=== PATIENT | female | born 1960 | race Caucasian/White ===

== ENCOUNTER 2020-06-28 08:27 | Outpatient (CLI) | payer BC, SELFPAY ==
--- NOTE | ~2020-06-28 | US_ITS ---
EXAMINATION: US abdomen limited DATE: 06/28/2020 08:58 INDICATION: Chronic hepatitis C without hepatic coma. TECHNIQUE: Multiple grayscale and Doppler ultrasound images of the abdomen were obtained. COMPARISON: Abdomen ultrasound 09/20/11 FINDINGS: The visualized portions of the head, body, and tail of the pancreas are normal. The liver i s normal without focal lesion. There is normal flow in main portal vein. The gallbladder is normal in size. No gallstones or gallbladder wall thickening. There was no sonographic Naik sign. The common duct is normal and measures 4 mm. There is a 3.2 cm cyst in right kidney. IMPRESSION: 1. Normal liver. Reviewed, dictated and finalized at location A. D CARE NURSE IMPRESSION: 1. Normal liver.
== END 2020-06-28 08:28 | disposition home or self-care (01) ==
PROVIDERS: PCP Physician Assistant
DX: B18.2 Chronic viral hepatitis C (principal)
CPT/HCPCS: 76705

== ENCOUNTER 2020-09-25 10:18 | Emergency (ER) | payer BC, SELFPAY ==
--- NOTE | ~2020-09-25 | XR_ITS ---
EXAMINATION: XR chest 2V 09/25/2020 10:56 INDICATION: Dyspnea with productive cough PROCEDURE: 2 view chest COMPARISON: 01/12/2016 FINDINGS: The lungs are clear. The cardiomediastinal silhouette is within normal limits. There are no pleural effusions. There is no pneumothorax suspected. IMPRESSION: 1: NO ACUTE CARDIOPULMONARY DISEASE. Reviewed, dictated and finalized at location B.
[2020-09-25 10:27] VITALS: BP 147/90; PULSE 94; RESP 16; TEMP 37; O2SAT 98
--- NOTE | 2020-09-25 10:46 | ED.URI ---
HPI - URI/Sore Throat General Chief Complaint: Upper Respiratory Infection Stated Complaint: cough Time Seen by Provider: 09/25/20 10:45 Source: patient Mode of arrival: ambulatory Limitations: no limitations History of Present Illness HPI Narrative: Torri Jeter is a 59-year-old female with a PMH of hypothyroidism and COPD who comes to [facility] with complaints of cough, productive, feeling like she is congested, denies fever, times 4 days COPD well controlled with the last few years, she is cutting on her cigarette consumption down to less than half pack a day Related Data Home Medications Medication Instructions Recorded Confirmed levothyroxine 1 mcg PO DAILY 09/25/20 09/25/20 Allergies Allergy/AdvReac Type Severity Reaction Status Date / Time oseltamivir [From Tamiflu] Allergy Intermediate Vomiting Verified 09/25/20 10:44 prochlorperazine Allergy Intermediate Vomiting Verified 09/25/20 10:44 [From Compazine] Review of Systems Review of Systems: Narrative: CONSTITUTIONAL: Denies fever, chills, sweats. EYES: Denies visual changes, redness, discharge. ENT: Denies rhinorrhea, congestion, sore throat, otalgia. CARDIOVASCULAR: Denies chest pain, palpitations, edema. RESPIRATORY: Denies dyspnea, wheezing, has cough which is productive, feels congested GASTROINTESTINAL: Denies abdominal pain, nausea, vomiting, diarrhea. GENITOURINARY: Denies dysuria, hematuria, abnormal discharge SKIN: Denies rash or itching. NEUROLOGIC: Denies numbness, or focal weakness. PSYCHIATRIC: Denies anxiety or depression. [facility] Past Medical History Medical History COPD exacerbation Hypothyroidism Family History Family History Mother Family history of malignant neoplasm of breast in first degree relative Hypertension Social History Social History Smoking packs per day: 0.5 Smoking cigarettes per day: 10.0 Smoking status: Current every day smoker Tobacco type: cigarettes Second hand tobacco smoke exposure: Yes Alcohol intake: former Substance use: current Substance use type: marijuana Gender identity (if verbalized by the patient): Female Comments At time of signature, I agree with nursing past medical, surgical, social and family history. There is no relevant family history pertinent to the presenting complaint. Patient's blood pressure elevated at this visit will follow up with Dr. Exam Narrative: Exam Narrative: GENERAL: This is a well-nourished, well-developed patient, in mild distress. HEAD: normocephalic, atraumatic. EYES: PERRL. Sclera clear/white. Vision is grossly intact. EARS: External ears normal, auditory canals clear and without drainage, TMs normal without perforation. Hearing grossly intact. NOSE: External nose normal without nasal discharge, nares without redness, no rhinorrhea. THROAT: Mucous membranes moist, posterior pharynx NECK: Neck supple, non-tender CARDIOVASCULAR: Regular rate and rhythm without murmurs, gallops, or rubs. RESPIRATORY: Diminished to auscultation. Breath sounds equal bilaterally. rhonchi bilateral bases. GASTROINTESTINAL: Abdomen soft, non-tender, SKIN: warm, intact with no suspicious lesions or rash, good texture and turgor. NEURO: awake, alert, and oriented to person, place and time. There were no obvious focal neurologic abnormalities. Steady gait EXTREMITIES: Normal range of motion. BACK: Nontender without deformity Course Course Emergency Course: 59-year-old patient comes to [facility] with 4-day history of cough and congestion. Sent home from work because of how bad her cough was today. History of COPD Chest x-ray - no active disease Manage cough, started on Zithromax, prednisone, refill albuterol inhaler, Delsym Vital Signs Vital signs: Vital Signs Temperature 98.6 F 06/10
== END 2020-09-25 11:28 | disposition home or self-care (01) ==
PROVIDERS: Emergency Provider Nurse Practitioner; PCP Physician Assistant
DX: J06.9 Acute upper respiratory infection, unspecified (principal); F17.210 Nicotine dependence, cigarettes, uncomplicated; J44.1 Chronic obstructive pulmonary disease with (acute) exacerbation; E03.9 Hypothyroidism, unspecified
CPT/HCPCS: 71046; 99213; G0463

== ENCOUNTER 2021-04-03 03:27 | Day surgery (SDC) | payer BC, SELFPAY ==
[2021-03-25 14:50] VITALS: BMI 26.7
[2021-04-03 07:35] VITALS: BP 183/101; PULSE 111; RESP 22; TEMP 36.3; O2SAT 97; BMI 26.4
[2021-04-03] MEDS: LACTATED RINGERS 1,000 ML 150 ML IV CONT (08:01)
--- NOTE | 2021-04-03 08:16 | WPDANESEPPF ---
Anes - Initial Pre Proc Eval Procedure: Operation Date: 04/03/21 09:00 Proposed Procedures p Colonoscopy - Shahab Asencio MD Date/Time: 04/03/21 08:16 Surgeon: Shahab Asencio MD Pre Op Diagnosis: positive cologuard Patient Data Age: 60 Gender: F Height: 1.65 m Weight: 72.1 kg Last Vital Signs Temp 36.3 C L 04/03/21 07:35 Pulse 111 H 04/03/21 07:35 Resp 22 H 04/03/21 07:35 BP 183/101 H 04/03/21 07:35 Pulse Ox 97 04/03/21 07:35 Allergies Allergy/AdvReac Type Severity Reaction Status Date / Time oseltamivir [From Tamiflu] Allergy Intermediate Vomiting Verified 04/03/21 07:50 prochlorperazine Allergy Intermediate Vomiting Verified 04/03/21 07:50 [From Compazine] Home Medications Medication Instructions Recorded Confirmed Type albuterol sulfate 90 mcg/actuation 1 inh INHALATION QID PRN #8.5 g 01/19/21 04/03/21 Rx aerosol inhaler levothyroxine 75 mcg tablet 75 mcg PO DAILY #90 tablet 02/16/21 04/03/21 Rx Patient hx anesthesia problems: none Family hx anesthesia problems: none Results Review: All pre-operative results and documents have been reviewed as part of the pre-operative evaluation. [facility] [place] Past Medical History Medical History COPD exacerbation Hepatitis C infection Hypothyroidism Surgical History Surgical History (Updated 04/03/21 @ 08:18 by Sumanth Forrest MD) H/O: hysterectomy Family History Family History Mother Family history of malignant neoplasm of breast in first degree relative Hypertension Social History Social History Smoking packs per day: 0.5 Smoking cigarettes per day: 10.0 Years smoked: 40 Smoking pack-years: 20.00 Smoking status: Current every day smoker Tobacco type: cigarettes Second hand tobacco smoke exposure: Yes Alcohol intake: former Substance use: current Substance use type: marijuana Other substance usage details: Daily Living arrangements: with family Gender identity (if verbalized by the patient): Female Spiritual care concerns: No Anes - Eval Final PreProcedure Day of Procedure 04/03/21 08:16 Patient weight: overweight Heart: regular rate and rhythm Lungs: clear to auscultation Airway: Mallampati scale class II Neurological: alert and oriented Last oral intake: >/= 8 hours ASA classification: III Emergent: no Anesthetic plan: proceed Anesthesia type and monitoring: general GIVS and standard monitoring Results Review: All pre-operative results and documents have been reviewed as part of the pre-operative evaluation. Informed Consent: The patient's anesthetic plan and its attendant risks and benefits were discussed with the patient/family/POA. Questions were solicited and answers provided to the satisfaction of the patient/family/POA.
--- NOTE | 2021-04-03 08:21 | P.CONGI_ITS ---
Assessment and Plan Assessment and plan (1) Positive colorectal cancer screening using Cologuard test: Code(s): R19.5 - Other fecal abnormalities Status: Acute Assessment and Plan: Patient had a positive Cologuard test. For this reason screening colonoscopy will be performed today. GI Consult Note Consult date/time: 04/03/21 08:21 HPI: Torri Jeter is a 60 year old female Presents for screening colonoscopy. Patient reports that her current weight appetite and bowel mov ements are normal. She denies abdominal pain. She has had no bleeding. Family history noncontributory. Patient recently had Cologuard test that was found to be positive. She presents today for screening colonoscopy. Review of Systems Review of Systems: All systems reviewed & are unremarkable except as noted in HPI and below PMFSH Past Medical History Medical History (Updated 04/03/21 @ 08:22 by Shahab Asencio MD) COPD exacerbation Hepatitis C infection Hypothyroidism Surgical History Surgical History (Updated 04/03/21 @ 08:18 by Sumanth Forrest MD) H/O: hysterectomy Family History Family History Mother Family history of malignant neoplasm of breast in first degree relative Hypertension Social History Social History Smoking packs per day: 0.5 Smoking cigarettes per day: 10.0 Years smoked: 40 Smoking pack-years: 20.00 Smoking status: Current every day smoker Tobacco type: cigarettes Second hand tobacco smoke exposure: Yes Alcohol intake: former Substance use: current Substance use type: marijuana Other substance usage details: Daily Living arrangements: with family Gender identity (if verbalized by the patient): Female Spiritual care concerns: No Meds Home Medications and Allergies Home Medications Medication Instructions Recorded Confirmed Type albuterol sulfate 90 mcg/actuation 1 inh INHALATION QID PRN #8.5 g 01/19/21 04/03/21 Rx aerosol inhaler levothyroxine 75 mcg tablet 75 mcg PO DAILY #90 tablet 02/16/21 04/03/21 Rx Allergies Allergy/AdvReac Type Severity Reaction Status Date / Time oseltamivir [From Tamiflu] Allergy Intermediate Vomiting Verified 04/03/21 07:50 prochlorperazine Allergy Intermediate Vomiting Verified 04/03/21 07:50 [From Compazine] Vital Signs Vital Signs - 24 hr 04/03/21 07:35 Temperature 97.3 F L Pulse Rate 111 H Respiratory Rate 22 H Blood Pressure 183/101 H Pulse Oximetry 97 Exam Narrative: Physical exam reveals patient to be alert. Vital signs stable. HEENT exam is unremarkable. Patient is anicteric. Lungs are clear to auscultation and percussion. Heart is without murmur or extra sounds. Her abdominal exam bowel sounds are present soft nontender with no hepatosplenomegaly.
[2021-04-03 09:23] VITALS: BP 120/79; PULSE 98; RESP 21; O2SAT 100
[2021-04-03 09:33] VITALS: BP 140/80; PULSE 98; RESP 21; O2SAT 100
[2021-04-03 09:42] VITALS: BP 168/90; PULSE 86; RESP 18; O2SAT 100
== END 2021-04-03 10:15 | disposition home or self-care (01) ==
PROVIDERS: PCP Physician Assistant; Visit Provider Internal Medicine Gastroenterology
PROC: 0DJD8ZZ Inspection of Lower Intestinal Tract, Via Natural or Artificial Opening Endoscopic (ICD-10-PCS; CPT 45378; principal; 2021-04-03 09:00)
DX: R19.5 Other fecal abnormalities (principal); D12.2 Benign neoplasm of ascending colon; K57.30 Diverticulosis of large intestine without perforation or abscess without bleeding; K64.8 Other hemorrhoids; J44.9 Chronic obstructive pulmonary disease, unspecified; B19.20 Unspecified viral hepatitis C without hepatic coma; Z87.891 Personal history of nicotine dependence; F12.90 Cannabis use, unspecified, uncomplicated; Z79.51 Long term (current) use of inhaled steroids
CPT/HCPCS: 45378; 88305; J2704; J7120

== ENCOUNTER 2022-03-07 11:52 | Emergency (ER) | payer BC, SELFPAY ==
[2022-03-07 12:39] VITALS: BP 170/102; PULSE 109; RESP 20; TEMP 36.9; O2SAT 97
[2022-03-07 13:54] VITALS: BP 175/107; PULSE 96; RESP 18; O2SAT 99
--- NOTE | 2022-03-07 14:12 | ED.BACK ---
HPI - Back Pain/Injury General Chief Complaint: Back Pain/Injury Stated Complaint: back pain Time Seen by Provider: 03/07/22 13:46 History of Present Illness HPI Narrative: 59-year-old female presented to the emergency department for evaluation of left lower back pain. Patient states on Tuesday she was attempting to put on a pair of pants when she lifted up her left leg. Patient states she had pain in her left lower back or left hip that radiates down her leg. Patient denies any associated numbness or weakness. Patient did have follow-up with an urgent care on and was started on cyclobenzaprine. Patient states she has been taking this for the last few days along with using lidocaine patches and taking [id number] medications and still states she is not having significant in her symptoms. Patient states the current back pain hip pain is worse than . Patient denies any prior history of back surgery. Patient denies any loss of bowel or bladder control. Past medical history includes COPD exacerbation Related Data Allergies Allergy/AdvReac Type Severity Reaction Status Date / Time oseltamivir [From Tamiflu] Allergy Intermediate Vomiting Verified 02/05/22 14:53 prochlorperazine Allergy Intermediate Vomiting Verified 02/05/22 14:53 [From Compazine] Review of Systems Review of Systems: CONSTITUTIONAL: Denies fever, chills, or sweats. EYES: Denies visual changes, redness, or discharge. ENT: Denies rhinorrhea, congestion, sore throat, or otalgia. CARDIOVASCULAR: Denies chest pain, palpitations, or edema. RESPIRATORY: Denies cough or dyspnea. GASTROINTESTINAL: Denies abdominal pain, nausea, vomiting, or diarrhea. GENITOURINARY: Denies dysuria or hematuria. SKIN: Denies rash or itching. MUSCULOSKELETAL: See HPI NEUROLOGIC: See HPI [facility] Past Medical History Medical History COPD exacerbation Hepatitis C infection Hypothyroidism Surgical History Surgical History H/O: hysterectomy Family History Family History Mother Family history of malignant neoplasm of breast in first degree relative Hypertension Social History Social History Smoking packs per day: 0.5 Smoking cigarettes per day: 10.0 Years smoked: 40 Smoking pack-years: 20.00 Smoking status: Current every day smoker Tobacco type: cigarettes Second hand tobacco smoke exposure: Yes Alcohol intake: former Substance use: current Substance use type: marijuana Other substance usage details: Daily Lack of Transportation: No Lack of Food: Never True Current Housing: I Have Housing Concerned About Future Housing: No Difficulty Paying Gas/Electric Bills: No Difficulty Paying for Meds: No Currently Unemployed: No Education: High School Diploma/GED Difficulty w/ Childcare or Family Care: No Gender identity (if verbalized by the patient): Female Spiritual care concerns: No Exam Narrative: APPEARANCE: Well appearing, no pain, no distress, well-nourished. HEAD: normocephalic, atraumatic. EYES: PERRLA/EOMI, conjunctivae clear. NOSE: Normal no drainage NECK: Supple. No adenopathy, no masses. RESPIRATORY: Airway patent, respirations nonlabored. Clear to auscultation bilaterally, no rales, rhonchi, wheezing. CARDIOVASCULAR: Regular rate and rhythm without murmurs rubs or gallops. ABDOMINAL: Soft, nontender, nondistended, normal bowel sounds MUSCULOSKELETAL: Moves all extremities. Left-sided buttock tenderness to palpation NEURO: Alert. Cranial nerves II through XII intact. Grossly intact SKIN: Warm, dry. Normal Color Course Course Emergency Course: Patient did feel improved with treatment. Patient was treated for sciatica. Patient was encouraged to have close follow-up with her p
[2022-03-07] MEDS: HYDROcodone/acetaminophen (*CRX) 5-325 MG TABLET 1 TAB PO (14:36)
[2022-03-07] MEDS: KETOROLAC 30 MG/ML VIAL (*BKC) IM (14:36)
[2022-03-07 15:06] VITALS: TEMP 36.9
[2022-03-07 15:31] VITALS: BP 157/91; PULSE 87; RESP 18; O2SAT 98
== END 2022-03-07 15:35 | disposition home or self-care (01) ==
PROVIDERS: Emergency Provider Emergency Medicine; PCP Physician Assistant
DX: M54.42 Lumbago with sciatica, left side (principal); J44.9 Chronic obstructive pulmonary disease, unspecified; Z90.710 Acquired absence of both cervix and uterus; E03.9 Hypothyroidism, unspecified; Z86.19 Personal history of other infectious and parasitic diseases; F17.210 Nicotine dependence, cigarettes, uncomplicated
CPT/HCPCS: 96372; 99283; A9270; J1885

== ENCOUNTER 2023-12-29 10:38 | Emergency (ER) | payer BC, SELFPAY ==
[2023-12-29] VITALS (7 sets, daily range): BP systolic 156–225; BP diastolic 93–129; PULSE 71–98; RESP 14–18; TEMP 36.5–36.9; O2SAT 99–100
--- NOTE | ~2023-12-29 | CT_ITS ---
EXAMINATION: CT lumbar spine wo con DATE: 12/29/2023 12:38 INDICATION: Low back pain radiating down the left leg. TECHNIQUE: Computed tomography (CT) of the lumbar spine was performed without intravenous contrast. A utomated exposure control and iterative reconstruction technique were employed. The dose-length produ ct was 629.27 mGy-cm. COMPARISON: None FINDINGS: There is a 2.2 cm mass in left adrenal gland measuring low attenuation, consistent with an adenoma. There is a 3.7 cm cyst in right kidney. Alignment is normal. Vertebral body heights are norm al. There is severely decreased disc height at L2-L3 and mildly decreased disc height at L3-L4, L4-L5 , and L5-S1. The following disc levels are specifically discussed: L1-L2: The disc does not extend beyond the endplate margin. There is mild bilateral facet joint osteo arthritis. There is no neural foraminal stenosis. There is no central canal stenosis. L2-L3: The disc is bulging. There is severe bilateral facet joint osteoarthritis. There is mild bilat eral neural foraminal stenosis. There is mild central canal stenosis. L3-L4: The disc is bulging. There is mild bilateral facet joint osteoarthritis. There is mild right a nd moderate left neural foraminal stenosis. There is mild central canal stenosis. L4-L5: The disc is bulging. There is severe bilateral facet joint osteoarthritis. There is mild bilat eral neural foraminal stenosis. There is mild central canal stenosis. L5-S1: The disc is bulging. There is severe bilateral facet joint osteoarthritis. There is mild bilat eral neural foraminal stenosis. There is mild central canal stenosis. IMPRESSION: 1. Severe lumbar spondylosis. Reviewed, dictated and finalized at location A.
[2023-12-29] MEDS: ACETAMINOPHEN 500 MG TABLET 1000 MG PO (12:28)
[2023-12-29] MEDS: diazePAM INJ (*CRX) 10 MG/2 ML SYRINGE 5 MG IM (12:29)
--- NOTE | 2023-12-29 12:35 | ED.BACK ---
HPI - Back Pain/Injury General Chief Complaint: Back Pain/Injury Stated Complaint: my back is out Time Seen by Provider: 12/29/23 12:14 Source: patient Mode of arrival: ambulatory Limitations: no limitations History of Present Illness HPI Narrative: This is a 63-year-old female that presents to the emergency department for lower back pain. Ongoing over the last week. Reports she was bent over trying to put on her pants. She felt a pop in her lower back. Has been experiencing pain since. She tried seeing her chiropractor with little relief. She took some Aleve prior to arrival today. Denies saddle anesthesia, bowel/bladder incontinence. Related Data Allergies Allergy/AdvReac Type Severity Reaction Status Date / Time oseltamivir [From Tamiflu] Allergy Intermediate Vomiting Verified 12/29/23 10:53 prochlorperazine Allergy Intermediate Vomiting Verified 12/29/23 10:53 [From Compazine] Review of Systems Review of Systems: CONSTITUTIONAL: Denies fever SKIN: Denies rash MUSCULOSKELETAL: Reports back pain, joint pain, and myalgia. NEUROLOGIC: Denies numbness, or weakness. All systems reviewed & are unremarkable except as noted in HPI and below PMFSH Past Medical History Medical History COPD exacerbation Hepatitis C infection Hypothyroidism Surgical History Surgical History H/O: hysterectomy Family History Family History Mother Family history of malignant neoplasm of breast in first degree relative Hypertension Social History Social History Smoking packs per day: 0.5 Smoking cigarettes per day: 10.0 Years smoked: 40 Smoking pack-years: 20.00 Smoking status: Current every day smoker Tobacco type: cigarettes Second hand tobacco smoke exposure: Yes Alcohol intake: former Substance use: current Substance use type: marijuana Other substance usage details: Daily Lack of Transportation: No Lack of Food: Never True Current Housing: I Have Housing Concerned About Future Housing: No Difficulty Paying Gas/Electric Bills: No Difficulty Paying for Meds: No Currently Unemployed: No Education: High School Diploma/GED Difficulty w/ Childcare or Family Care: No Living arrangements: with family Gender identity (if verbalized by the patient): Female Spiritual care concerns: No Exam Narrative: GENERAL: Well-appearing, well-nourished, and in no acute distress. HEAD: Normocephalic, atraumatic. EYES: EOMI. CHEST: Clear to auscultation. No respiratory distress. No wheezes rales or rhonchi HEART: Regular rate and rhythm. No murmur heard. Normal peripheral pulses. BACK: No midline spinal tenderness EXTREMITIES: Normal range of motion. No edema. Strength equal in bilateral lower extremities (5/5). Normal DP pulses SKIN: Warm, dry, no rash. NEURO: No focal deficits. Alert and oriented x3. Normal gait PSYCH: Normal mood and affect Course Course Emergency Course: Patient updated on her workup and agrees with plan of care. Resting comfortably Vital Signs Vital signs: Vital Signs Temperature 98.5 F 12/29/23 10:48 Pulse Rate 98 12/29/23 10:48 Respiratory Rate 16 12/29/23 10:48 Blood Pressure 194/113 H 12/29/23 10:48 Pulse Oximetry 100 12/29/23 10:48 Oxygen Delivery Room Air 12/29/23 10:48 Temperature 98.2 F 12/29/23 15:46 Pulse Rate 74 12/29/23 15:46 Respiratory Rate 15 12/29/23 15:46 Blood Pressure 156/98 H 12/29/23 15:46 Pulse Oximetry 100 12/29/23 15:46 Oxygen Delivery Room Air 12/29/23 10:48 MDM - Back Pain/Injury MDM Narrative Medical decision making narrative: patient presents to the emergency department for low back pain. Ongoing over the last week. Reports started after
--- NOTE | 2023-12-29 14:28 | ECG_ITS ---
Test Date: 2023-12-29 15:06:00 Measurements Intervals [place] Rate: 78 P: 72 DE: 166 QRS: 46 QRSD: 76 T: 62 QT: 374 QTc: 427 Interpretive Statements SINUS RHYTHM NORMAL ECG No previous ECG available for comparison Electronically Signed On 12-29-2023 15:23:53 CDT by Kostas Chacon D.O.
[2023-12-29] MEDS: ONDANSETRON INJ 4 MG/2 ML VIAL IV PUSH (15:13)
[2023-12-29] MEDS: MORPHINE SULFATE (*CRX) 4 MG/ML INJ IV PUSH (15:14)
[2023-12-29 15:16] LABS: Basophils Absolute Auto 0.1 K/mm3 (0.0-0.1); Basophils Percent Auto 0.5 % (0.2-1.2); Eosinophils Absolute Auto 0.1 K/mm3 (0-0.3); Eosinophils Percent Auto 1.5 % (0-4.4); Hematocrit 39.9 % (37.0-47.0); Hemoglobin 13.6 g/dL (12.0-15.0); Immature Granulocyte Absolute 0.04 K/mm3 (0.00-0.031); Immature Granulocyte Percent A 0.4 % (0-0.5); Lymphocytes Percent Auto 25.8 % (18.3-44.2); Mean Corpuscular HGB Conc 34.1 g/dl (32-36); Mean Corpuscular Hemoglobin 32.2 pg (26-34); Mean Corpuscular Volume 94.3 fl (80-100); Mean Platelet Volume 10.4 fl (7.4-10.4); Monocytes Absolute Auto 0.6 K/mm3 (0.1-0.6); Monocytes Percent Auto 5.9 % (2.6-8.5); Neutrophils Absolute Auto 6.1 K/mm3 (1.3-6.7); Neutrophils Percent Auto 65.9 % (45.5-73.1); Platelet Count Result 169 k/mm3 (150-375); Red Blood Count 4.23 M/mm3 (4.2-5.4); Red Cell Distribution Width 12.9 % (11.5-14.5); White Blood Count 9.3 K/mm3 (4.5-10.0)
[2023-12-29 15:27] LABS: Alanine Aminotransferase 13 U/L (6-35); Albumin Level 4.3 g/dL (3.5-5.1); Alkaline Phosphatase 45 U/L (38-126); Anion Gap 9 mmol/L (4-12); Aspartate Amino Transferase 21 U/L (14-36); Bilirubin,Total 0.4 mg/dL (0.2-1.3); Blood Urea Nitrogen 16 mg/dL (7-17); Calcium 8.8 mg/dL (8.4-10.2); Carbon Dioxide 21 mmol/L (22-30); Chloride 105 mmol/L (98-107); Estimated CRCL calculation 61 ml/min; Estimated Glomerular Filt Rate > 60; Glucose 106 mg/dL (65-110); Potassium 4.2 mmol/L (3.4-5.0); Sodium 135 mmol/L (137-145)
== END 2023-12-29 16:37 | disposition home or self-care (01) ==
PROVIDERS: Emergency Provider Physician Assistant; PCP Internal Medicine
DX: M54.42 Lumbago with sciatica, left side (principal); R03.0 Elevated blood-pressure reading, without diagnosis of hypertension; E03.9 Hypothyroidism, unspecified; F17.210 Nicotine dependence, cigarettes, uncomplicated
CPT/HCPCS: 36415; 72131; 80053; 85025; 93005; 96372; 96374; 96375; 99284; A9270; J2270; J2405; J3360